=== PATIENT | male | born 1960 | race Caucasian/White ===

== ENCOUNTER → 2018-10-20 | Outpatient (CLI) | payer OTHER ==
[~2018-10-20] MED LIST: PERFLUTREN PROTEIN-A MICROSPHR 0.22 MG/ML 3 ML VIAL. IV ONE; REGADENOSON 0.4 MG/5 ML DISP.SYRIN. IV ONE
--- NOTE | 2018-10-20 09:42 | PCVCIMAG ---
APPROVED REPORT Study performed: 10/20/2018 08:03:21 EXAM: Comprehensive 2D, Doppler, and color-flow Echocardiogram Patient Location: Echo lab Status: routine BSA: 2.49 HR: 69 bpmBP: 140/80 mmHg Rhythm: NSR Other Information Study Quality: Technically Limited Risk Factors: Cardiac Risk Factors: HTN, DM Indications Diabetes Dyspnea Chest Pain Echo Enhancing Agent Indication: Endocardial border delineation Agent(s) / Amount(s) Used: Optison cc 2D Dimensions IVSd: 11.54 (7-11mm) LVDd: 41.12 mm PWd: 13.44 (7-11mm)Ascending Ao: 30.13 (22-36mm) LVDs: 37.08 (25-40mm) Left Atrium: 34.37 (27-40mm) Volumes Left Atrial Volume (Systole) Single Plane 4CH: 29.20 mLSingle Plane 2CH: 16.99 mL LA ESV Index: 10.00 mL/m2 Aortic Valve LVOT Max P.27 mmHg LVOT Max V: 0.90 m/s Mitral Valve E/A Ratio: 1.3 MV Decel. Time: 269.26 ms MV E Max Alexys.: 0.94 m/s MV A Alexys.: 0.73 m/s MV PHT: 78.09 ms TDI E/Lateral E': 8.55E/Medial E': 7.83 Medial E' Alexys.: 0.12 m/s Lateral E' Alexys.: 0.11 m/s Left Ventricle The left ventricle is normal size. There is normal LV segmental wall motion. There is normal left ventricular wall thickness. Left ventricular systolic function is normal. The left ventricular ejection fraction is within the normal range. LVEF is 55%. The left ventricular diastolic function is normal. Right Ventricle The right ventricle is normal size. The right ventricular systolic function is normal. Atria The left atrium size is normal. The right atrium size is normal. Aortic Valve The aortic valve is not well visualized. No aortic regurgitation is present. There is no aortic valvular stenosis. Mitral Valve The mitral valve is normal in structure. There is no mitral valve regurgitation noted. No evidence of mitral valve stenosis. Tricuspid Valve The tricuspid valve is normal in structure. There is no tricuspid valve regurgitation noted. Pulmonic Valve The pulmonary valve is normal in structure. There is no pulmonic valvular regurgitation. Great Vessels The aortic root is normal in size. IVC is normal in size and collapses >50% with inspiration. Pericardium There is no pericardial effusion. <Conclusion> Left ventricular systolic function is normal. There is normal LV segmental wall motion. LVEF is 55%. Normal diastolic function The aortic valve is not well visualized. No aortic regurgitation or stenosis The mitral valve is normal in structure. No mitral valve regurgitation. Pulmonary artery pressure could not be reliably ascertained There is no pericardial effusion.
--- NOTE | 2018-10-20 17:41 | PCVCIMAG ---
APPROVED REPORT Imaging Protocol: Rest Tc-99m/Stress Tc-99m 1 day Study performed: 10/20/2018 08:40:39 Indication: Chest pain, Dyspnea, Near Syncope Patient Location: Out-Patient Stress Nurse: Asha Restrepo RN, Sivan Velazquez RN SD Tech:Ros Sauldee [facility] Ht: 6 ft 3 in Wt: 275 lbs BSA: 2.51 m2 HR: 81 bpm BP: 157/84 mmHg BMI: 34.36 Medical History Medical History: HTN, Hyperlipidemia, Diabetic � Insulin Medications: Lisinopril Allergies: No known drug allergies Cardiac Risk Factors: Age Pretest Chest Pain Characteristics: No chest pain Exercise History: Physically active Resting Data Rest SPECT myocardial perfusion imaging was performed in supine position 45 minutes following the intravenous injection of 11.1 mCi of Tc-99m Sestamibi. Time of rest injection: 0830 Date: 10/20/2018 Administration Route: IV Administration Site: Right AC Pharmacologic Stress Pharmacologic stress test was performed by injecting Regadenoson 0.4 mg IV push over 10-15 seconds immediately followed by the intravenous injection of 34.5 mCi of Tc-99m Sestamibi. Time of stress injection: 1000 Date: 10/20/2018 Administration Route: IV Administration Site: Right AC Gated Stress SPECT was performed 45 minutes after stress injection. The images were gated to evaluate regional wall motion and calculate left ventricular ejection fraction. Stress Test Details Stress Test: Pharmacologic stress was paired with low level exercise. Reason for pharmacologic stress test: Multiple knee surgeries. HRMax Heart Rate (APMHR): 162 bpm Resting HR: 81 bpmTarget HR (85% APMHR): 137 bpm Max HR Achieved: 139 bpm % of APMHR: 85 Recovery HR: 80 bpm BP Resting BP: 157/84 mmHg Max BP: 162/78 mmHg Recovery BP: 160/77 mmHg ECG Resting ECG: Sinus Rhythm Stress ECG: Sinus Tachycardia Recovery ECG: Sinus Rhythm Clinical Reason for Termination: Completed protocol Stress Symptoms: Dyspnea Exercise duration: 4 min 00 sec Exercise capacity: 1.6 METs Symptoms resolved with caffeine. Stress ECG Conclusion 1. adequate response to iv lexiscan 2. inadequate heart rate for ecg diagnosis Study Data Post stress, the left ventricular ejection was 71%.. SSS: 0 SRS: 0 SDS: 0 TID = 1.06. Perfusion There is a medium area of moderately reduced uptake in the mid and apical segment of the inferolateral wall which is seen on the stress images and improves on the resting images. This area thickens and moves normally and is most consistent with artifact but a small region of ischemia cannot be excluded. Wall Motion Normal left ventricular wall motion. Nuclear Conclusion ECG Findings: non-diagnostic Clinical Findings: negative for ischemia Nuclear Findings: equivocal clinical correlation suggested Exercise Capacity: not assessed Left Ventricular Function: normal 1. low to intermediate risk study <Conclusion> 1. adequate response to iv lexiscan 2. inadequate heart rate for ecg diagnosis
== END | disposition home or self-care (01) ==
LOC: PCVCIMAG 13:00
PROVIDERS: ATTEND Internal Medicine
DX: R07.9 Chest pain, unspecified (principal); R06.00 Dyspnea, unspecified; E11.9 Type 2 diabetes mellitus without complications; R55 Syncope and collapse; G47.00 Insomnia, unspecified; E78.00 Pure hypercholesterolemia, unspecified; Z87.898 Personal history of other specified conditions; Z79.4 Long term (current) use of insulin
CPT/HCPCS: 78452; 93017; A9500; C8929; J2785; Q9956